=== PATIENT | male | born 1950 | race Caucasian/White ===

== ENCOUNTER 2016-12-24 09:32 | Emergency (ER) | payer OTHER, MEDICARE ==
--- NOTE | 2016-12-24 09:58 | RADIOLOGY REPORT (SQ) ---
EXAM DESCRIPTION: CT HEAD WITHOUT COMPLETED DATE/TIME: 12/24/2016 9:48 am REASON FOR STUDY: stroke s/s COMPARISON: None. TECHNIQUE: Axial images acquired through the brain without intravenous contrast. Images reviewed wi th bone, brain and subdural windows. Images stored on PACS. All CT scanners at this facility use dose modulation, iterative reconstruction, and/or weight based d osing when appropriate to reduce radiation dose to as low as reasonably achievable (ALARA). [facility]: Dose Right [facility]: CareDose [facility]: Dose Right [facility]: Teradose 4D [facility]: Smart Venaxis RADIATION DOSE: Up-to-date CT equipment and radiation dose reduction techniques were employed. CTDIv ol: 64.6 mGy. DLP: 1163 mGy-cm. mGy. LIMITATIONS: None. FINDINGS: VENTRICLES: Normal size and contour. CEREBRUM: No masses. No hemorrhage. No midline shift. No evidence for acute infarction. Normal gra y/white matter differentiation. No areas of low density in the white matter. CEREBELLUM: No masses. No hemorrhage. No alteration of density. No evidence for acute infarction. EXTRAAXIAL SPACES: No fluid collections. No masses. ORBITS AND GLOBE: No intra- or extraconal masses. Normal contour of globe without masses. CALVARIUM: No fracture. PARANASAL SINUSES: No fluid or mucosal thickening. SOFT TISSUES: No mass or hematoma. OTHER: No other significant finding. IMPRESSION: NORMAL BRAIN CT WITHOUT CONTRAST. EVIDENCE OF ACUTE STROKE: NO. COMMENT: Quality ID # [id number]: Final reports with documentation of one or more dose reduction techniques (e.g., Automated exposure control, adjustment of the mA and/or kV according to patient size, use of iterative reconstruction technique) TECHNICAL DOCUMENTATION: JOB ID: [id number] 2018 [employer]- All Rights Reserved
--- NOTE | 2016-12-24 10:14 | RADIOLOGY REPORT (SQ) ---
EXAM DESCRIPTION: CHEST SINGLE VIEW COMPLETED DATE/TIME: 12/24/2016 9:50 am REASON FOR STUDY: Stroke s/s COMPARISON: None. EXAM PARAMETERS: NUMBER OF VIEWS: One view. TECHNIQUE: Single frontal radiographic view of the chest acquired. RADIATION DOSE: NA LIMITATIONS: None. FINDINGS: LUNGS AND PLEURA: Multiple pulmonary nodules of varying sizes scattered in the lungs. No infiltrates or effusions. MEDIASTINUM AND HILAR STRUCTURES: No masses. Contour normal. HEART AND VASCULAR STRUCTURES: Heart normal in size. Normal vasculature. BONES: No acute findings. HARDWARE: None in the chest. OTHER: No other significant finding. IMPRESSION: Multiple pulmonary nodules, likely metastatic disease to the lung. Granulomatous diseas e not entirely excluded. TECHNICAL DOCUMENTATION: JOB ID: [id number]
[2016-12-24 10:19] LABS: ABSOLUTE BASOPHILS # (AUTO) 0.1 10^3/uL (0.0-0.2); ABSOLUTE LYMPHOCYTES (AUTO) 1.4 10^3/uL (0.5-4.7); ABSOLUTE MONOCYTES (AUTO) 1.1 10^3/uL (0.1-1.4); ABSOLUTE NEUT (AUTO) 9.5 10^3/uL (1.7-8.2); BASOPHILS % (AUTO) 0.7 % (0-2); EOSINOPHILS % (AUTO) 0.4 % (0-6); HEMOGLOBIN 9.6 g/dL (13.5-17.0); HGB HCT DIFFERENCE -1.2; LYMPHOCYTES % (AUTO) 11.7 % (13-45); MEAN CORPUSCULAR HEMOGLOBIN 23.1 pg (27.0-33.4); MEAN CORPUSCULAR HGB CONC 32.1 g/dL (32.0-36.0); MEAN CORPUSCULAR VOLUME 72 fl (80-97); MONOCYTES % (AUTO) 8.8 % (3-13); RED BLOOD COUNT 4.17 10^6/uL (4.35-5.55); RED CELL DISTRIBUTION WIDTH 17.2 % (11.5-14.0); SEGMENTED NEUTROPHILS % (AUTO) 78.4 % (42-78); WHITE BLOOD COUNT 12.1 10^3/uL (4.0-10.5)
[2016-12-24 10:49] LABS: CREATINE KINASE MB 0.28 ng/mL (<4.55)
[2016-12-24 10:51] LABS: ALANINE AMINOTRANSFERASE 30 U/L (21-72); ALBUMIN 3.5 g/dL (3.5-5.0); ALKALINE PHOSPHATASE 236 U/L (38-126); ANION GAP 13 (5-19); ASPARTATE AMINO TRANSFERASE 40 U/L (17-59); BILIRUBIN,DIRECT 0.6 mg/dL (0.0-0.4); BILIRUBIN,TOTAL 0.7 mg/dL (0.2-1.3); BLOOD UREA NITROGEN 27 mg/dL (7-20); CARBON DIOXIDE 28 mmol/L (22-30); CHLORIDE 100 mmol/L (98-107); CREATININE RESULT 1.92 mg/dL (0.52-1.25); GLUCOSE 125 mg/dL (75-110); POTASSIUM 4.2 mmol/L (3.6-5.0); SODIUM 141.2 mmol/L (137-145); TOTAL PROTEIN 8.7 g/dL (6.3-8.2)
[2016-12-24 10:52] LABS: TROPONIN I < 0.012 ng/mL
[2016-12-24 11:03] LABS: CREATINE KINASE < 20 U/L (55-170)
[2016-12-24 11:06] LABS: CALCIUM 14.2 mg/dL (8.4-10.2)
--- NOTE | 2016-12-24 11:30 | ER Document Report ---
ED General - General Chief Complaint: S/S of Possible Stroke Stated Complaint: POSSIBLE STROKE Time Seen by Provider: 12/24/16 09:40 Mode of Arrival: Ambulatory Information source: Patient Notes: 66-year-old male history of recent renal cell carcinoma diagnosis with possible metastasis to the lungs presents with complaints of dizziness episode and left- sided paresthesia. Patient notes that he was diagnosed with an acute CVA last week was supposed to have a biopsy performed today but had left sided complete paresthesia at 1am lasting 10-15 minutes TRAVEL OUTSIDE OF THE [place] IN LAST 30 DAYS: No - HPI Onset: This morning Onset/Duration: Sudden Quality of pain: No pain Severity: Mild Pain Level: Denies Associated symptoms: None Exacerbated by: Denies Relieved by: Denies Similar symptoms previously: Yes Recently seen / treated by doctor: Yes - Related Data Allergies/Adverse Reactions: No Known Allergies Allergy (Unverified 12/23/16 16:58) Past Medical History - Social History Smoking Status: Never Smoker Cigarette use (# per day): No Chew tobacco use (# tins/day): No Smoking Education Provided: No Frequency of alcohol use: None Drug Abuse: None Family History: Reviewed & Not Pertinent Patient has suicidal ideation: No Patient has homicidal ideation: No - Past Medical History Cardiac Medical History: Reports: Hx Coronary Artery Disease, Hx Heart Attack - [place] with 2 stents, Hx Hypertension Pulmonary Medical History: Reports: Hx Bronchitis Denies: Hx Asthma, Hx COPD, Hx Pneumonia Neurological Medical History: Denies: Hx Cerebrovascular Accident, Hx Seizures Renal/ Medical History: Denies: Hx Peritoneal Dialysis Musculoskeltal Medical History: Denies Hx Arthritis - Immunizations Hx Diphtheria, Pertussis, Tetanus Vaccination: No Review of Systems - Review of Systems Notes: REVIEW OF SYSTEMS: CONSTITUTIONAL : Denies fever, chills, or sweats. Denies recent illness. EENT: Denies eye, ear, throat, or mouth pain or symptoms. Denies nasal or sinus congestion or discharge. Denies throat, tongue, or mouth swelling or difficulty swallowing. CARDIOVASCULAR: Denies chest pain. Denies palpitations or racing or irregular heart beat. Denies ankle edema. RESPIRATORY: Denies cough, cold, or chest congestion. Denies shortness of breath, difficulty breathing, or wheezing. GASTROINTESTINAL: Denies abdominal pain or distention. Denies nausea, vomiting , or diarrhea. Denies blood in vomitus, stools, or per rectum. Denies black, tarry stools. Denies constipation. GENITOURINARY: Denies difficulty urinating, painful urination, burning, frequency, blood in urine, or discharge. MUSCULOSKELETAL: Denies back or neck pain or stiffness. Denies joint pain or swelling. SKIN: Denies rash, lesions or sores. HEMATOLOGIC : Denies easy bruising or bleeding. LYMPHATIC: Denies swollen, enlarged glands. NEUROLOGICAL: Paresthesia PSYCHIATRIC: Denies anxiety or stress. Denies depression, suicidal ideation, or homicidal ideation. ALL OTHER SYSTEMS REVIEWED AND NEGATIVE. PHYSICAL EXAMINATION: GENERAL: Well-appearing, well-nourished and in no acute distress. HEAD: Atraumatic, normocephalic. EYES: Pupils equal round and reactive to light, extraocular movements intact, conjunctiva are normal. ENT: Nares patent, oropharynx clear without exudates. Moist mucous membranes. NECK: Normal range of motion, supple without lymphadenopathy LUNGS: Breath sounds clear to auscultation bilaterally and equal. No wheezes rales or rhonchi. HEART: Regular rate and rhythm without murmurs ABDOMEN: Soft, nontender, nondistended abdomen. No guarding, no rebound. No masses appreciated. Musculoskeletal: Normal range of motion, no pitting or edema. No cyanosis. NEUROLOGICAL: Cranial nerves grossly intact. Normal speech, normal gait. Normal sensory, motor exams PSYCH: Normal mood, normal affect. SKIN: Warm, Dry, normal turgor, no rashes or lesions noted. Dictation was performed using [employer] voice recognition software Physical Exam - Vital signs Vitals: Temp Pulse Resp BP Pulse Ox 98.4 F 92 16 102/53 L 97 12/24/16 09:37 12/24/16 09:37 12/24/16 09:37 12/24/16 09:37 12/24/16 09:37 Course - Re-evaluation Re-evalutation: 12/24/16 11:30 [facility] for transfer 12/24/16 11:45 Internal med resident accepts , dajuan lspeak with attending and call back 12/24/16 12:00 Dr Roy will accept the patient but unsure of ability to biopsy , will clal pulmonology 12/24/16 12:04 12/24/16 12:[address] Lackey states it is elective procedure not to be done with active cva like symptoms pt insists on going ot [facility] Dr Roy called - Vital Signs Vital signs: Temp Pulse Resp BP Pulse Ox 98.4 F 69 21 H 103/64 96 12/24/16 09:37 12/24/16 12:00 12/24/16 12:01 12/24/16 12:00 12/24/16 12:01 - Laboratory Result Diagrams: 12/24/16 10:10 12/24/16 10:10 Laboratory results interpreted by me: 12/24/16 12/24/16 12/24/16 10:10 10:10 11:40 WBC 12.1 H RBC 4.17 L Hgb 9.6 L Hct 30.0 L MCV 72 L MCH 23.1 L RDW 17.2 H Plt Count 567 H Seg Neutrophils % 78.4 H Lymphocytes % 11.7 L Absolute Neutrophils 9.5 H APTT 49.6 H BUN 27 H Creatinine 1.92 H Est GFR ( Amer) 43 L Est GFR (Non-Af Amer) 35 L Glucose 125 H Calcium 14.2 H* Direct Bilirubin 0.6 H Alkaline Phosphatase 236 H Creatine Kinase < 20 L Total Protein 8.7 H - Diagnostic Test Radiology reviewed: Image reviewed, Reports reviewed Discharge - Discharge Clinical Impression: Hypercalcemia TIA (transient ischemic attack) Qualifiers: Transient cerebral ischemia type: unspecified Qualified Code(s): G45.9 - Transient cerebral ischemic attack, unspecified Renal cell carcinoma Qualifiers: Laterality: left Qualified Code(s): C64.2 - Malignant neoplasm of left kidney, except renal pelvis Condition: Stable Disposition: OTHER Referrals: ZULEIKA MONROE MD [Primary Care Provider] - Follow up as needed
[2016-12-24] MEDS: NORMAL SALINE 1000 ML 1,000 ML IV PRN ×2 (11:47→14:34)
[2016-12-24 11:53] LABS: PARTIAL THROMBOPLASTIN TIME 49.6 SEC (23.5-35.8)
[2016-12-24 11:59] LABS: PROTHROMBIN TIME 15.3 SEC (11.4-15.4)
[2016-12-24 12:59] VITALS: BP 103/64
--- NOTE | 2016-12-24 13:24 | EKG REPORT ---
SEVERITY:- ABNORMAL ECG - SINUS RHYTHM RIGHT BUNDLE BRANCH BLOCK SUSPICIOUS ST ELEVATION IN ANTEROLATERAL LEADS V4-6 , I AVL. CLINICAL CORRELATION NEEDED, CONSIDER ST [facility]. NO PREV. EKG TO COMPARE. : Confirmed by: Wesley Teixeira MD 24-Dec-2016 13:23:03
== END 2016-12-24 14:46 ==
LOC: ER 09:32
DX: E83.52 Hypercalcemia (principal); G45.9 Transient cerebral ischemic attack, unspecified; C64.2 Malignant neoplasm of left kidney, except renal pelvis; R42 Dizziness and giddiness; R20.2 Paresthesia of skin; I25.10 Atherosclerotic heart disease of native coronary artery without angina pectoris; I25.2 Old myocardial infarction; I10 Essential (primary) hypertension
CPT/HCPCS: 93005; 99285; 96360; 96361; 36415; 82553; 82550; 85025; 85610; 85730; 80053; 84484; 71010; 70450; 93010; J7030

== ENCOUNTER → 2016-12-24 | Day surgery (SDC) | payer OTHER, MEDICARE | LOC: EDBD → RAD 08:59 | PROVIDERS: ATTEND Internal Medicine | DX: C64.2 Malignant neoplasm of left kidney, except renal pelvis (principal) ==

== ENCOUNTER 2017-01-07 09:01 | Day surgery (SDC) | payer OTHER, MEDICARE ==
[2017-01-07 09:51] LABS: HEMATOCRIT 26.5 % (37.9-51.0); HEMOGLOBIN 8.5 g/dL (13.5-17.0); MEAN CORPUSCULAR HEMOGLOBIN 22.7 pg (27.0-33.4); MEAN CORPUSCULAR VOLUME 71 fl (80-97); RED BLOOD COUNT 3.74 10^6/uL (4.35-5.55); RED CELL DISTRIBUTION WIDTH 17.8 % (11.5-14.0); WHITE BLOOD COUNT 9.2 10^3/uL (4.0-10.5)
[2017-01-07 09:58] LABS: PROTHROMBIN TIME 15.8 SEC (11.4-15.4)
[2017-01-07 09:59] LABS: PARTIAL THROMBOPLASTIN TIME 47.1 SEC (23.5-35.8)
[2017-01-07 10:07] LABS: BLOOD UREA NITROGEN 15 mg/dL (7-20); CREATININE RESULT 1.09 mg/dL (0.52-1.25)
[2017-01-07] MEDS ORDERED: MIDAZOLAM 2 MG/2 ML INJ ONE (11:02)
[2017-01-07] MEDS ORDERED: FENTANYL CITRATE INJ/PF 100 MCG/2 ML AMPUL ONE (11:02)
--- NOTE | 2017-01-07 12:33 | RADIOLOGY REPORT (SQ) ---
EXAM DESCRIPTION: CHEST SINGLE VIEW COMPLETED DATE/TIME: 01/07/2017 12:23 pm REASON FOR STUDY: POST LUNG BIOPSY COMPARISON: AP chest 12/24/2016 CT-guided lung biopsy earlier today EXAM PARAMETERS: NUMBER OF VIEWS: One view. TECHNIQUE: Single frontal radiographic view of the chest acquired. RADIATION DOSE: NA LIMITATIONS: None. FINDINGS: LUNGS AND PLEURA: Biopsy of a a left lateral lung base mass under CT minutes ago. Small a mount of hemorrhage around the mass in the left lateral costophrenic sulcus. No left-sided pneumotho rax. Multiple lung nodules are similar compared to 12/24/2016. No acute infiltrate worrisome for pneumonia. No pleural effusion. MEDIASTINUM AND HILAR STRUCTURES: No masses. Contour normal. HEART AND VASCULAR STRUCTURES: Heart normal in size. Normal vasculature. BONES: 1 cm bony lytic lesion in the medial right clavicle at the sternoclavicular joint. . HARDWARE: None in the chest. OTHER: No other significant finding. IMPRESSION: No left-sided pneumothorax post lower lobe lung nodule biopsy TECHNICAL DOCUMENTATION: JOB ID: [id number]
--- NOTE | 2017-01-07 13:17 | RADIOLOGY REPORT (SQ) ---
EXAM DESCRIPTION: CT BIOPSY LUNG/MEDIASTINUM; CT NEEDLE PLACEMENT COMPLETED DATE/TIME: 01/07/2017 12:04 pm; 01/07/2017 12:03 pm REASON FOR STUDY: LUNG NODULES; LUNG NODULES, LUNG BIOPSY C64.2 MALIGNANT NEOPLASM OF LEFT KIDNEY, EXCEPT RENAL PELVIS COMPARISON: Chest film 12/24/2016 TECHNIQUE: CT guided biopsy of the left lower lobe pulmonary nodule performed with conscious sedatio n. CT Fluoroscopy Time: 9.[address] scanners at this facility use dose modulation, iterative reconstruction, and/or weight based d osing when appropriate to reduce radiation dose to as low as reasonably achievable (ALARA). [facility]: Dose Right [facility]: CareDose [facility]: Dose Right [facility]: Teradose 4D [facility]: Kopo Kopo RADIATION DOSE: 77 mGy. FINDINGS: The procedure was discussed with the patient and the patient agreed to the procedure. Prio r to the procedure, a time out was performed to verify the patient's identity and planned procedure. IV sedation was administered and physician direction by the registered nurse using 1.5 milligrams of Versed and 75 micrograms of fentanyl. Physiologic monitoring was provided before, during, and after s edation. The total sedation time was 39 minutes. Documentation face to face time, the performing proceduralist, spent monitoring the patient: [address] scanning was performed to localize the percutaneous site for the biopsy approach. After sterile skin prep and local lidocaine for skin and deep tissue anesthesia, a coaxial biopsy nee dle was used to obtain multiple cores of tissue. The biopsy tract was embolized with a [employer] clos ure device. The biopsy tissue was submitted to the lab in formalin. There were no immediate complicat ions. Pathology is pending at the time of dictation. IMPRESSION: CT GUIDED BIOPSY OF THE LEFT LOWER LOBE PULMONARY NODULE PERFORMED WITHOUT IMMEDIATE COM PLICATION. PATHOLOGY PENDING. COMMENT: Quality ID 145: Final reports for procedures using fluoroscopy that document radiation exp osure indices, or exposure time and number of fluorographic images (if radiation exposure indices are not available) Patient medication list reviewed: Yes- Quality ID# [id number]:Eligible professional attests to documenting i n the medical record they obtained, updated, or reviewed the patient's current medications.. TECHNICAL DOCUMENTATION: JOB ID: [id number] Quality ID# [id number]: Final reports with documentation of one or more dose reduction techniques (e.g., Aut omated exposure control, adjustment of the mA and/or kV according to patient size, use of iterative r econstruction technique) 2010 [employer]- All Rights Reserved
[2017-01-07 15:00] VITALS: BP 96/50
--- NOTE | 2017-01-07 16:20 | RADIOLOGY REPORT (SQ) ---
EXAM DESCRIPTION: CHEST SINGLE VIEW COMPLETED DATE/TIME: 01/07/2017 2:35 pm REASON FOR STUDY: POST LUNG BIOPSY 2 HOUR* COMPARISON: Chest film 01/07/2017, [address]-guided lung biopsy 01/07/2017 EXAM PARAMETERS: NUMBER OF VIEWS: One view. TECHNIQUE: Single frontal radiographic view of the chest acquired. RADIATION DOSE: NA LIMITATIONS: None. FINDINGS: LUNGS AND PLEURA: 2 hours post left lower lobe nodule biopsy. No left pneumothorax. No acute infiltrates, pleural effusions. Multiple pulmonary nodules are present. MEDIASTINUM AND HILAR STRUCTURES: No masses. Contour normal. HEART AND VASCULAR STRUCTURES: Heart normal in size. Normal vasculature. BONES: No acute findings. HARDWARE: None in the chest. OTHER: No other significant finding. IMPRESSION: No pneumothorax 2 hours post left lung biopsy TECHNICAL DOCUMENTATION: JOB ID: [id number]
== END 2017-01-07 14:35 | disposition home or self-care (01) ==
LOC: RAD 09:01
PROVIDERS: ATTEND Internal Medicine
PROC: 0BBJ3ZX Excision of Left Lower Lung Lobe, Percutaneous Approach, Diagnostic (ICD-10-PCS; principal; 2017-01-07)
DX: C64.2 Malignant neoplasm of left kidney, except renal pelvis (principal); C78.02 Secondary malignant neoplasm of left lung; I25.10 Atherosclerotic heart disease of native coronary artery without angina pectoris; Z79.82 Long term (current) use of aspirin; Z79.899 Other long term (current) drug therapy
CPT/HCPCS: 36415; 84520; 82565; 84132; 85027; 85610; 85730; 88342 ×2; 88341 ×2; 88305 ×2; 71010; 77012; 32405; J2250; J3010